=== PATIENT | male | born 1990 | race Two or more races ===

== ENCOUNTER 2024-05-03 19:16 | Emergency (ER) | payer OTHER ==
[~2024-05-03] VITALS: Ht 167.6 cm; Wt 90.9 kg
[2024-05-03 19:32] VITALS: TEMP 97.9
[2024-05-03 20:01] LABS: BASOPHILS % (AUTO) 0.5 % (0.0-2.0); EOSINOPHILS % (AUTO) 0.3 % (1.0-6.0); HEMATOCRIT 46.4 % (41-53); HEMOGLOBIN 15.6 g/dL (13.5-17.5); LYMPHOCYTES # (AUTO) 1.4 K/uL (1.0-4.8); LYMPHOCYTES % (AUTO) 28.2 % (22.0-44.0); MEAN CORPUSCULAR HEMOGLOBIN 29.6 pg (26.0-34.0); MEAN CORPUSCULAR HGB CONC 33.6 G/dL (31.0-37.0); MEAN CORPUSCULAR VOLUME 88 fL (80-100); MONOCYTES # (AUTO) 0.4 K/uL (0.1-1.0); MONOCYTES % (AUTO) 7.2 % (2.0-9.0); NEUTROPHILS # (AUTO) 3.2 K/uL (1.8-7.7); NEUTROPHILS % (AUTO) 63.8 % (40.0-70.0); PLATELET COUNT (AUTO) 225 K/uL (150-450); RED BLOOD CELL COUNT(AUTO) 5.25 MIL/uL (4.50-5.90); RED CELL DISTRIBUTION WIDTH 13.7 % (11.5-14.5)
[2024-05-03 20:12] LABS: ANION GAP 8 mmol/L (8-16); CALCIUM, TOTAL 9.4 mg/dL (8.8-10.5); CARBON DIOXIDE 31 mmol/L (22-29); CHLORIDE 102 mmol/L (98-107); CREATININE 1.06 mg/dL (0.60-1.30); GLOMERULAR FILTR. RATE CALC > 60 mL/min (>60); GLUCOSE,RANDOM 121 mg/dL (70-110); POTASSIUM 3.7 mmol/L (3.5-5.1); SODIUM SERUM 141 mmol/L (136-145); UREA NITROGEN, BLOOD 10 mg/dL (7-18)
[2024-05-03 20:23] LABS: TROPONIN I-HIGH SENSITIVITY 6 ng/L (<76)
[2024-05-03 23:04] LABS: TROPONIN I-HIGH SENSITIVITY 7 ng/L (<76)
[2024-05-04 00:30] VITALS: BP 135/89; PULSE 82; RESP 16; O2SAT 98
== END 2024-05-04 00:38 | disposition home or self-care (01) ==
LOC: EMS 19:16
DX: R07.89 Other chest pain (principal); R20.0 Anesthesia of skin; R51.9 Headache, unspecified
CPT/HCPCS: 71045; 72040; 80048; 84484; 85025; 93005; 99285; 36415-L1; 36415-TC

== ENCOUNTER 2024-05-18 12:04 | Emergency (ER) | payer OTHER ==
[~2024-05-18] VITALS: Ht 167.6 cm; Wt 90.9 kg
[2024-05-18 12:05] VITALS: BP 123/74; PULSE 67; RESP 18; TEMP 97.8; O2SAT 99
[2024-05-18] MEDS: IBUPROFEN 600 MG TABLET PO ONE (13:02)
[2024-05-18] MEDS: METHOCARBAMOL 500 MG TABLET PO ONE (13:03)
[2024-05-18] MEDS ORDERED: IBUP-1554 PO (13:21)
[2024-05-18] MEDS ORDERED: GABA-1181 PO (13:21)
[2024-05-18] MEDS ORDERED: METH-659 PO (13:21)
== END 2024-05-18 13:34 | disposition home or self-care (01) ==
LOC: EMS 12:05
DX: S29.012A Strain of muscle and tendon of back wall of thorax, initial encounter (principal); G62.9 Polyneuropathy, unspecified; R07.89 Other chest pain; X58.XXXA Exposure to other specified factors, initial encounter; Y93.89 Activity, other specified; Y92.89 Other specified places as the place of occurrence of the external cause; Y99.8 Other external cause status
CPT/HCPCS: 93005; 99283

== ENCOUNTER 2024-09-04 21:03 | Emergency (ER) | payer OTHER ==
[~2024-09-04] VITALS: Ht 167.6 cm; Wt 90.9 kg
[~2024-09-04 21:03] MED LIST: GABA-1181 PO; IBUP-1554 PO; METH-659 PO
[2024-09-04 21:09] VITALS: BP 136/77; PULSE 73; RESP 20; TEMP 98.2; O2SAT 94
== END 2024-09-05 00:22 | disposition left against medical advice (07) ==
LOC: EMS 21:03
DX: S61.215A Laceration without foreign body of left ring finger without damage to nail, initial encounter (principal); Z53.21 Procedure and treatment not carried out due to patient leaving prior to being seen by health care provider; W26.0XXA Contact with knife, initial encounter; Y93.89 Activity, other specified; Y92.89 Other specified places as the place of occurrence of the external cause; Y99.8 Other external cause status